=== PATIENT | female | born 1965 | race Hispanic/Latino ===

== ENCOUNTER → 2024-03-28 13:45 | Outpatient (REF) | payer MEDICARE, SELFPAY | LOC: WDC 13:45 | PROVIDERS: ATTENDING PHYSICIAN Nurse Practitioner Adult Health | DX: Z12.31 Encounter for screening mammogram for malignant neoplasm of breast (principal) | CPT/HCPCS: 77063; 77067 ==

== ENCOUNTER → 2025-01-28 08:26 | Outpatient (REF) | payer MEDICARE, SELFPAY | LOC: RST 08:26 | PROVIDERS: ATTENDING PHYSICIAN Internal Medicine Gastroenterology; FAMILY PHYSICIAN Nurse Practitioner Adult Health | DX: R13.10 Dysphagia, unspecified (principal); Z78.0 Asymptomatic menopausal state | CPT/HCPCS: 74230; 77080; 92611 ==

== ENCOUNTER → 2025-02-25 10:30 | Outpatient (REF) | payer MEDICARE, SELFPAY | LOC: HWRCS 10:30 | PROVIDERS: ATTENDING PHYSICIAN Student in an Organized Health Care Education/Training Program; FAMILY PHYSICIAN Nurse Practitioner Adult Health | DX: R94.31 Abnormal electrocardiogram [ECG] [EKG] (principal) | CPT/HCPCS: 93306 ==

== ENCOUNTER → 2025-02-26 09:45 | Outpatient (REF) | payer MEDICARE, SELFPAY ==
--- NOTE | 2025-02-26 11:26 | CARDSERVLU ---
Echocardiogram with Lumason completed after protocol screening completed. Allergies verified.
Patent IV site: ___Rt AC__
IV site flushed with 0.9% NaCl pre and post administration.
Diluted bolus method utilized to enhance visualization of ventricular guy.
Total volume given: _5.0___ mL
Patient tolerated all procedures well without complications.
#22 diamante placed Rt AC. Lumason given. INT d/c'd. pressure held. No bleeding noted.
== END ==
LOC: RCS 09:45
PROVIDERS: ATTENDING PHYSICIAN Student in an Organized Health Care Education/Training Program; FAMILY PHYSICIAN Nurse Practitioner Adult Health
DX: R94.31 Abnormal electrocardiogram [ECG] [EKG] (principal)
CPT/HCPCS: 93017; 93350; Q9950